=== PATIENT | female | born 1975 | race Hispanic/Latino ===

== ENCOUNTER 2020-06-06 14:00 | Inpatient (IN) | payer MEDICARE ==
[~2020-06-06] VITALS: Ht 152.4 cm; Wt 83.0 kg
[2020-06-17 16:31] LABS: BASOPHILS % (AUTO) 0.8 % (0.0-5.0); EOSINOPHILS % (AUTO) 3.7 % (0.0-8.0); LYMPHOCYTES % (AUTO) 16.9 % (21.0-51.0); MEAN CORPUSCULAR HEMOGLOBIN 28.8 pg (27.0-33.0); MEAN CORPUSCULAR HGB CONC 31.6 g/dL (32.0-36.0); MEAN CORPUSCULAR VOLUME 91.3 fL (79-99); MONOCYTES % (AUTO) 5.6 % (3.0-13.0); NEUTROPHILS % (AUTO) 72.7 % (40.0-77.0); PLATELET COUNT (AUTO) 208 K/uL (130-400); RED BLOOD CELL COUNT(AUTO) 4.16 MIL/uL (4.00-5.50); RED CELL DISTRIBUTION WIDTH 14.6 % (11.0-15.5); WHITE BLOOD COUNT (AUTO) 10.5 K/uL (4.8-10.8)
[2020-06-17 16:41] VITALS: BP 202/79
[2020-06-18] VITALS (27 sets, daily range): BP systolic 96–211; BP diastolic 55–95
[2020-06-18] MEDS ORDERED: ATOR40TA69 PO (07:05)
[2020-06-18] MEDS ORDERED: ASCO500C18 PO (07:05)
[2020-06-18] MEDS ORDERED: ROPI0.257 PO (07:05)
[2020-06-18] MEDS ORDERED: GLIM1TAB18 PO (07:05)
[2020-06-18] MEDS ORDERED: CLON0.1T PO (07:05)
[2020-06-18] MEDS ORDERED: INSLAN SQ (07:05)
[2020-06-18] MEDS ORDERED: CALC667T8 PO (07:05)
[2020-06-18] MEDS ORDERED: AMLO-257 PO (07:05)
[2020-06-18] MEDS ORDERED: SODIUM CHLORIDE 0.9% 500ML 500 ML IV ONE (07:08)
[2020-06-18] MEDS ORDERED: DEXTROSE 50%-WATER 50 ML DISP.SYRIN IV SCH (08:15)
[2020-06-18] MEDS ORDERED: SUCCINYLCHOLINE CHLORIDE 20 MG/ML 10 ML VIAL ONE (09:29)
[2020-06-18] MEDS ORDERED: DEXAMETHASONE SOD PHOSPHATE 10MG/ML 1ML VIAL ONE (09:29)
[2020-06-18] MEDS ORDERED: NEOSTIGMINE 5MG/5ML SYR IV ONE (09:30)
[2020-06-18] MEDS ORDERED: MIDAZOLAM HCL 1 MG/ML 2ML VIAL ONE (09:30)
[2020-06-18] MEDS ORDERED: GLYCOPYRROLATE 1 MG/5 ML SYRINGE ONE (09:30)
[2020-06-18] MEDS ORDERED: ROCURONIUM 10MG/1ML SYR 10 MG/ML ML ONE ×2 (09:30→10:19)
[2020-06-18] MEDS ORDERED: ONDANSETRON HCL 4 MG/2 ML VIAL ONE (09:30)
[2020-06-18] MEDS ORDERED: FENTANYL CITRATE PF 50 MCG/1 ML 2ML VIAL ONE (09:30)
[2020-06-18] MEDS ORDERED: LIDOCAINE PF 2% 5ML ABBOJECT ONE ×2 (09:30→09:31)
[2020-06-18] MEDS ORDERED: PROPOFOL 10 MG/ML 20ML VIAL IV ONE (09:30)
[2020-06-18 09:41] LABS: POTASSIUM 5.1 mmol/L (3.5-5.1)
[2020-06-18 09:47] LABS: CREATININE 10.8 mg/dL (0.5-1.5)
[2020-06-18] MEDS ORDERED: CEFAZOLIN SODIUM 1 GM VIAL IVP ONE (10:25)
[2020-06-18] MEDS ORDERED: SUGAMMADEX SODIUM 200 MG/2 ML VIAL IV ONE (12:25)
[2020-06-18] MEDS ORDERED: LABETALOL 20 MG/4 ML DISP.SYRIN IV ONE (12:37)
[2020-06-18] MEDS ORDERED: MEPERIDINE-PF 25 MG/ML SYG ONE (12:51)
[2020-06-18] MEDS ORDERED: IBUPROFEN 600 MG TABLET PO PRN (14:15)
[2020-06-18] MEDS ORDERED: BISACODYL 10 MG SUPP.RECT RC PRN (14:15)
[2020-06-18] MEDS ORDERED: PROMETHAZINE HCL 25 MG/ML 1ML AMPULE IM PRN ×2 (14:15)
[2020-06-18] MEDS ORDERED: ONDANSETRON HCL 4 MG/2 ML VIAL IVP PRN (14:15)
[2020-06-18] MEDS ORDERED: MEPERIDINE-PF 75 MG/ML SYG IM PRN (14:15)
[2020-06-18] MEDS ORDERED: MEPERIDINE-PF 25 MG/ML SYG IM SCH ×2 (15:15→16:35)
[2020-06-18] MEDS ORDERED: MEPERIDINE HCL/PF 25 MG/0.5 ML AMPUL IM ONE (15:30)
[2020-06-18] MEDS: SODIUM CHLORIDE 0.9% 1000ML 1,000 ML IV SCH (15:35)
[2020-06-18] MEDS: INSULIN HUMULIN R 100 UNIT/ML 3ML SQ SCH ×2 (16:30→21:00)
[2020-06-18] MEDS ORDERED: HYDROMORPHONE HCL 0.5 MG/0.5 ML ML IVP PRN (18:30)
[2020-06-18] MEDS: DOCUSATE SODIUM 100 MG CAP PO PRN (21:53)
[2020-06-18] MEDS: SIMETHICONE 80 MG TAB.CHEW PO PRN (21:53)
[2020-06-19 02:56] VITALS: BP 169/72
[2020-06-19] MEDS: ACETAMINOPHEN-CODEINE 300/30MG TAB PO PRN ×2 (03:22→09:24)
[2020-06-19] MEDS: SODIUM CHLORIDE 0.9% 1000ML 1,000 ML IV SCH (03:23)
[2020-06-19 05:41] LABS: HEMATOCRIT 33.3 % (36-48); MEAN CORPUSCULAR HEMOGLOBIN 28.8 pg (27.0-33.0); MEAN CORPUSCULAR HGB CONC 31.5 g/dL (32.0-36.0); MEAN CORPUSCULAR VOLUME 91.5 fL (79-99); RED BLOOD CELL COUNT(AUTO) 3.64 MIL/uL (4.00-5.50); RED CELL DISTRIBUTION WIDTH 14.7 % (11.0-15.5); WHITE BLOOD COUNT (AUTO) 16.3 K/uL (4.8-10.8)
[2020-06-19 06:00] LABS: CREATININE 7.1 mg/dL (0.5-1.5); PHOSPHORUS 6.6 mg/dL (2.5-4.9); POTASSIUM 4.7 mmol/L (3.5-5.1)
[2020-06-19] MEDS: INSULIN HUMULIN R 100 UNIT/ML 3ML SQ SCH ×2 (07:30→11:30)
[2020-06-19 07:39] VITALS: BP 141/73
[2020-06-19] MEDS: DOCUSATE SODIUM 100 MG CAP PO PRN (09:22)
[2020-06-19] MEDS: SIMETHICONE 80 MG TAB.CHEW PO PRN (09:22)
[2020-06-19 11:19] VITALS: BP 140/86
== END 2020-06-19 16:15 | disposition home or self-care (01) | DRG 742 ==
LOC: DAHIP 06-18 05:30 → WSH 06-18 13:55 → EDSTATUS 06-18 14:00
PROVIDERS: ADMIT Obstetrics & Gynecology; ATTEND Obstetrics & Gynecology
PROC: 5A1D70Z Performance of Urinary Filtration, Intermittent, Less than 6 Hours Per Day (ICD-10-PCS; 2020-06-18)
PROC: 0UT9FZZ Resection of Uterus, Via Natural or Artificial Opening With Percutaneous Endoscopic Assistance (ICD-10-PCS; principal; 2020-06-18 10:30)
PROC: 0UT7FZZ Resection of Bilateral Fallopian Tubes, Via Natural or Artificial Opening With Percutaneous Endoscopic Assistance (ICD-10-PCS; 2020-06-18 10:30)
DX: D25.9 Leiomyoma of uterus, unspecified (principal); N18.6 End stage renal disease; I12.0 Hypertensive chronic kidney disease with stage 5 chronic kidney disease or end stage renal disease; E11.22 Type 2 diabetes mellitus with diabetic chronic kidney disease; E11.51 Type 2 diabetes mellitus with diabetic peripheral angiopathy without gangrene; E78.5 Hyperlipidemia, unspecified; E87.70 Fluid overload, unspecified; E11.649 Type 2 diabetes mellitus with hypoglycemia without coma; Z20.828 Contact with and (suspected) exposure to other viral communicable diseases; Z99.2 Dependence on renal dialysis; N92.1 Excessive and frequent menstruation with irregular cycle; D50.9 Iron deficiency anemia, unspecified
CPT/HCPCS: 36415; 80048; 82948; 84100; 84703; 85025; 85027; 86850; 86900; 86901; 90935; A4344; G0378; J0330; J0690; J1100; J1170; J2001; J2175; J2250; J2405; J2704; J2710; J3010; J3490; J7030; J7040; U0003